=== PATIENT | male | born 1980 | race Caucasian/White ===

== ENCOUNTER → 2019-02-14 | Outpatient (CLI) | payer OTHER | LOC: C.LAB 07:31 | DX: Z31.49 Encounter for other procreative investigation and testing (principal); Z00.00 Encounter for general adult medical examination without abnormal findings; Z13.0 Encounter for screening for diseases of the blood and blood-forming organs and certain disorders involving the immune mechanism ==

== ENCOUNTER 2019-03-03 09:36 | Outpatient (CLI) | payer OTHER | END 2019-03-03 09:37 | disposition home or self-care (01) | LOC: C.LAB 09:36 | DX: N46.9 Male infertility, unspecified (principal) ==